=== PATIENT | male | born 1965 | race Caucasian/White ===

== ENCOUNTER 2017-06-04 09:23 | Inpatient (IN) | payer OTHER ==
[~2017-06-04] VITALS: Ht 185.4 cm; Wt 99.8 kg
[2017-06-04 10:04] LABS: BASOPHILS 0.1 % (0-2); EOSINOPHILS 0.3 % (0-7); HEMATOCRIT 42.2 % (42.0-54.0); HEMOGLOBIN 14.4 g/dL (13.5-17.5); IMMATURE GRANULOCYTES 0.2 % (0-5); LYMPHOCYTES 6.9 % (15-50); MCH 28.3 pg (26.0-34.0); MCHC 34.1 g/dL (31.0-37.0); MCV 83.1 fL (80.0-100.0); MEAN PLATELET VOLUME 11.8 fL (7.4-10.4); MONOCYTES 6.7 % (2-11); NEUTROPHILS 85.8 % (40-80); PLATELET COUNT 137 10x3/uL (130-400); RBC 5.08 10x6/uL (4.20-6.10); RDW 14.1 % (11.5-14.5); WBC 17.7 10x3/uL (4.8-10.8)
[2017-06-04 10:13] LABS: APPEARANCE CLEAR (CLEAR); BACTERIA MODERATE /hpf (NONE SEEN); BILIRUBIN NEGATIVE (NEGATIVE); COLOR DK YELLOW (YELLOW); EPITHELIAL CELLS OCC /hpf (0-5); GLUCOSE NEGATIVE (NEGATIVE); HYALINE CAST RARE /lpf (NONE SEEN); KETONE NEGATIVE (NEGATIVE); MUCUS <1+ /lpf (NONE SEEN); NITRITE NEGATIVE (NEGATIVE); PROTEIN 2+ mg/dL (NEGATIVE); RED CELLS - URINE 0-5 /hpf (0-5); UROBILINOGEN NORMAL (NORMAL); WHITE CELLS - URINE OCC /hpf (0-5)
[2017-06-04 10:15] LABS: ALBUMIN 3.9 g/dL (3.4-5.0); ANION GAP 10.5 mmol/L (8-16); BILIRUBIN - TOTAL 1.84 mg/dL (0.2-1.3); CALCIUM 9.5 mg/dL (8.5-10.1); CARBON DIOXIDE 32.3 mmol/L (21.0-32.0); CREATININE - SERUM 1.4 mg/dL (0.6-1.3); POTASSIUM - SERUM 3.8 mmol/L (3.5-5.1); PROTEIN - SERUM 8.5 g/dL (6.4-8.2)
[2017-06-04 10:37] LABS: AMYLASE - SERUM 55 U/L (25-115); LIPASE 348 U/L (73-393)
--- NOTE | 2017-06-04 14:37 | NUR ---
REC'D REPORT FROM KATELYN BATES IN THE ER. AWAITING PATIENT TO ARRIVE ON THE FLOOR.
[2017-06-04] MEDS ORDERED: PROTONIX40 MG PO (14:49)
[2017-06-04] MEDS ORDERED: LISINOPRIL5 MG PO (14:50)
[2017-06-04] MEDS ORDERED: PRAVACHOL40 MG PO (14:50)
[2017-06-04] MEDS ORDERED: CYCLOBENZAPRINE10 MG PO (14:51)
[2017-06-04] MEDS ORDERED: PHENERGAN25 M1 PO (14:51)
[2017-06-04] MEDS ORDERED: BENTYL 20 MG TA20 MG PO (14:52)
[2017-06-04 15:40] VITALS: BP 131/88; BMI 29.0
--- NOTE | 2017-06-04 17:01 | NUR ---
REC'D VIA WHEELCHAIR. IV TO THE RIGHT AC. ALERT AND ORIENTED X4. DENINED PAIN AT THIS TIME. NO DISTRESS NOTED. IS AT BESIDE. INSTRUCTED TO CALL IF NEEDED ANYTHING, VERBALIZED UNDERSTANDING. BED LOW, LOCKED, CALL LIGHT IN REACH.
--- NOTE | 2017-06-04 19:25 | NUR ---
RECIEVED SHIFT REPORT. PT IS LYING IN BED. ALERT AND ORIENTED AND ABLE TO VERBALIZE NEEDS. IV IS PATENT AND FLUIDS ARE RUNNING PER ORDER. PT IS AMBULATORY BUT WAS INSTRUCTED TO CALL FOR ANY ASSISTANCE NEEDED. PT STATES PAIN IS 2/10 WITH CAPTAIN AIRLINE PILOT PUMP. PT REQUESTING A FAN. NO FURTHER NEEDS ARE VERBALIZED AT THIS TIME. WILL CONTINUE TO MONITOR. SIDE RAILS ARE UP X 2. BED IS IN LOWEST POSITION. CALL LIGHT IS WITHIN REACH.
--- NOTE | 2017-06-04 21:28 | NUR ---
SHIFT ASSESSMENT COMPLETED. FLUIDS HUNG PER ORDER. NO NEEDS ARE VOICED. WILL MONITOR. SIDE RAILS X 2. BED LOW. CALL LIGHT IN REACH.
[2017-06-05] VITALS: BP 135/92
[2017-06-05 04:00] VITALS: BP 137/95
[2017-06-05 06:47] LABS: BASOPHILS 0.1 % (0-2); EOSINOPHILS 1.1 % (0-7); HEMATOCRIT 36.5 % (42.0-54.0); HEMOGLOBIN 11.9 g/dL (13.5-17.5); IMMATURE GRANULOCYTES 0.2 % (0-5); LYMPHOCYTES 7.5 % (15-50); MCH 27.7 pg (26.0-34.0); MCHC 32.6 g/dL (31.0-37.0); MCV 84.9 fL (80.0-100.0); MEAN PLATELET VOLUME 12.1 fL (7.4-10.4); MONOCYTES 7.8 % (2-11); NEUTROPHILS 83.3 % (40-80); PLATELET COUNT 125 10x3/uL (130-400); RDW 14.6 % (11.5-14.5)
[2017-06-05 06:53] LABS: WBC 9.3 10x3/uL (4.8-10.8)
[2017-06-05 07:15] LABS: ALKALINE PHOSPHATASE 132 U/L (46-116); AMYLASE - SERUM 28 U/L (25-115); BILIRUBIN - DIRECT 0.31 mg/dL (0.00-0.30); BILIRUBIN - INDIRECT 0.99 mg/dL (0.00-1.00); CALC OSMOLALITY 266 mosm/kg (275-300); CALCIUM 8.2 mg/dL (8.5-10.1); CARBON DIOXIDE 27.6 mmol/L (21.0-32.0); CHLORIDE - SERUM 99 mmol/L (98-107); GLUCOSE 107 mg/dL (74-106); LIPASE 178 U/L (73-393); MAGNESIUM - SERUM 2.2 mg/dL (1.8-2.4); PHOSPHOROUS 2.3 mg/dL (2.5-4.9); SODIUM 133 mmol/L (136-145); TRIGLYCERIDE 381 mg/dL (30-200); UREA NITROGEN 15 mg/dL (7-18)
[2017-06-05 07:16] LABS: ALT (SGPT) 106 U/L (10-68); POTASSIUM - SERUM 4.4 mmol/L (3.5-5.1); eGFR NON AFRICAN AMERICAN 83 mL/min (90-120)
--- NOTE | 2017-06-05 07:40 | NUR ---
ASSESSMENT PER FLOW SHEET.PT WITHOUT DISTRESS AT PRESENT.PT COMPLAINS OF PAIN 3/10 SCALE TO BACK AND STATES THAT THE PAIN IS CHRONIC.CALL LIGHT IN REACH
[2017-06-05 07:56] VITALS: BP 132/72
--- NOTE | 2017-06-05 09:43 | NUR ---
PT REFUSES SCD'S
--- NOTE | 2017-06-05 09:45 | NUR ---
MEDS ORDERED FOR NAUSEA.
[2017-06-05 12:42] VITALS: Ht 185.4 cm; Wt 99.8 kg
[2017-06-05 16:00] VITALS: BP 148/92
--- NOTE | 2017-06-05 19:20 | NUR ---
NOTIFIED BY LYNDA RUIZ THAT THE PATIENT REQUESTED TO SPEAK WITH AN RN. UPON ENTERING THE PATIENT'S ROOM THE PATIENT WAS UPSET BECAUSE HIS X RAY SERVICE TECHNICIAN PUMP WAS LOCKING HIM OUT. HE STATED THAT IF HE WAS ACTUALLY GETTING THE MEDICATION "I WOULD BE SLEEPING." I EXPLAINED TO THE PATIENT HOW THE X RAY SERVICE TECHNICIAN PUMP WORKS AND SHOWED HIM ON THE PUMP HOW MUCH MEDICATION HE HAD USED. I EXPLAINED TO THE PATIENT, LYNDA DE JESUS AND LYNDA RUIZ HAD PREVIOUSLY EXPLAINED TO HIM, WE CANNOT "UNLOCK THE MACHINE" AND HE WOULD NEED TO WAIT FOR HIS LIGHT TO TURN GREEN AGAIN. I ASKED THE PATIENT IF HE NEEDS ANYTHING ELSE AT THIS TIME. THE PATIENT RESPONDED "YES, YOU CAN GET THE HELL OUT OF MY ROOM."
--- NOTE | 2017-06-05 20:05 | NUR ---
REST IN BED AND WATCH TV.
--- NOTE | 2017-06-05 21:10 | NUR ---
PT STATE,THE SHAG TRUCK DRIVER MACHINE DOESN'T WORK, AND IT BEEBING. HE STILL FEEL THE PAIN. CHECK THE SHAG TRUCK DRIVER, AND IT IS RUNING AND IS WORKING GOOD. RICHARDSON ZEPEDA COME TO CHECKED, AND EXPLAINED IT TO PT.
--- NOTE | 2017-06-05 22:05 | NUR ---
THE PATIENT REQUESTED THAT HIS DOCTOR BE NOTIFIED THAT HE WANTS TO GO HOME IN THE MORNING
[2017-06-06] VITALS: BP 143/87
--- NOTE | 2017-06-06 00:06 | NUR ---
REST IN BED, CALL LIGHT IN REACH.
--- NOTE | 2017-06-06 03:44 | NUR ---
REST QUIETLY IN BED, CALL LIGHT IN REACH.
[2017-06-06 04:00] VITALS: BP 155/105
--- NOTE | 2017-06-06 05:15 | NUR ---
PT SIGNED LEAVING AGAINST MEDICAL ADVICE RELEASE FORM. STATES:" CAR FRAMER IS NOT WORKING ALL NIGHT, AND NON OF THE NURSE CAN FIX THE CAR FRAMER. CHARGE NURSE TALKS TO PT, AND PT DECIDED STAYED UNTIL DR. LORENZO.
--- NOTE | 2017-06-06 08:13 | NUR ---
DECLINES ASSESSMENT THIS AM. PT VERY ANXIOUS AND WANTS TO DC HOME.DISCHARGE INSTRUCTIONS,STATES UNDERSTANDING.IV DCD WITH CATH TIP INTACT.
--- NOTE | 2017-06-06 08:17 | NUR ---
LEFT UNIT VIA WHEELCHAIR FOR TRANSPORT HOME
--- NOTE | 2017-06-06 13:27 | HP ---
PATIENT: JENISE BANERJEE MEDICAL RECORD: [id number] ACCOUNT: [id number] LOCATION:[id number] : 61 ADMISSION DATE: 06/04/17 HISTORY AND PHYSICAL EXAMINATION This is a history and physical addendum. CHIEF COMPLAINT: Pain. HISTORY OF PRESENT ILLNESS: The patient was complaining of back pain. He has not felt well since Saturday. Today is Saturday. I personally reviewed his CT images. I have personally reviewed his CT report. The patient used to be a heavy drinker, but not in the last 20 years. Reportedly, he has high triglycerides. Either one of these could be an etiology for his pancreatitis. He appears to have had bouts of pancreatitis in the past. Currently, he is mainly complaining of back pain. Palpation aggravates. Nothing alleviates. Symptoms are moderate to severe in intensity. He has not had a bowel movement in several days. This is a history and physical addendum. For the typed portion of the history and physical, please see the chart. This would include the past medical and surgical history, current medications, allergies, social history, as well as family history. REVIEW OF SYSTEMS: Positive for abdominal pain. Positive for back pain, no fever, no chills. Review of systems is negative other than as is described above. PHYSICAL EXAMINATION: GENERAL: He does appear acutely ill. He does not appear chronically ill. VITAL SIGNS: Reviewed. EARS: External ears appear normal. EYES: Extraocular movements are intact. NECK: Trachea is midline. CHEST: No intercostal retractions. PULMONARY: Nonlabored, no stridor. ABDOMEN: Tenderness in the upper abdomen. BACK: No thoracic kyphosis. LYMPHATICS: No lymphangitic streaking of the exposed extremities. PSYCHIATRIC: Anxious affect. NEUROLOGIC: Nonfocal, no lethargy. IMPRESSION: Acute pancreatitis, likely resolving. PLAN: He is on clear liquid diet. I will keep him on a clear liquid diet for now. IV narcotic analgesia. IV fluids. Serial abdominal examinations. Serial lab draws. TRANSINT:[id number] Voice Confirmation ID: [id number] DOCUMENT ID: [id number] HISTORY AND PHYSICAL [id number] JENISE BANERJEE HAILEE BYRD, FILIPPO DYER at 7490 CC: [id number] DICTATION DATE: 06/04/171940 ADULT PSYCHIATRIST: 06/04/172309 DIS IN 06/06/17 [facility] [address] [place] [address]
--- NOTE | 2017-07-03 11:31 | DS ---
PATIENT:JENISE BANERJEE :61 MEDICAL RECORD: [id number] DISCHARGE SUMMARY ADMISSION DATE: 06/04/17 DISCHARGE DATE: 06/06/17 PRINCIPAL DIAGNOSES: 1. Acute pancreatitis. 2. Anemia, not due to blood loss. 3. Hypophosphatemia. 4. Two cm pancreatic pseudocyst. 5. Hepatic steatosis. 6. Diverticulosis. OTHER DIAGNOSES: Include gastroesophageal reflux, hypertension, hyperlipidemia. 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 HOSPITAL COURSE: The patient was admitted through the Emergency Room. The patient had a resolution of his abdominal pain with bowel rest. He had nausea. His diet was advanced. He was dismissed home. The patient underwent a CT scan. It revealed findings consistent with acute pancreatitis. There was a probable pancreatic pseudocyst measuring 2 cm in the distal pancreatic body. I will see the patient on a p.r.n. basis. TRANSINT:[id number] Voice Confirmation ID: [id number] DOCUMENT ID: [id number] FILIPPO BYRD MD at 1131 CC: [id number] DICTATION DATE: 06/27/17 1445 AUTOMATED ACCESS SYSTEMS TECHNICIAN: 06/28/17 0955 DIS IN 06/06/17 [facility] [id number] [place] [address]
== END 2017-06-06 08:17 | disposition home or self-care (01) | DRG 440 ==
LOC: D.ER 09:23 → D.SDCHOLD 14:06 → D.MS 14:06
PROVIDERS: Emergency Medicine; Physician Assistant; ADMIT Surgery
DX: K85.90 Acute pancreatitis without necrosis or infection, unspecified (principal)

== ENCOUNTER 2017-11-23 15:04 | Emergency (ER) | payer OTHER ==
[~2017-11-23] VITALS: Ht 185.4 cm; Wt 106.8 kg
[~2017-11-23 15:04] MED LIST: BENTYL 20 MG TA20 MG PO; CYCLOBENZAPRINE10 MG PO; LISINOPRIL5 MG PO; PHENERGAN25 M1 PO; PRAVACHOL40 MG PO; PROTONIX40 MG PO
[2017-11-23 15:08] VITALS: Ht 185.4 cm; Wt 106.8 kg
[2017-11-23 15:30] LABS: APPEARANCE CLEAR (CLEAR); BASOPHILS 0.2 % (0-2); BILIRUBIN NEGATIVE (NEGATIVE); COLOR DK YELLOW (YELLOW); EOSINOPHILS 0.5 % (0-7); GLUCOSE NEGATIVE (NEGATIVE); HEMATOCRIT 41.8 % (42.0-54.0); HEMOGLOBIN 14.1 g/dL (13.5-17.5); IMMATURE GRANULOCYTES 0.2 % (0-5); KETONE NEGATIVE (NEGATIVE); LYMPHOCYTES 11.9 % (15-50); MCH 27.8 pg (26.0-34.0); MCHC 33.7 g/dL (31.0-37.0); MCV 82.4 fL (80.0-100.0); MEAN PLATELET VOLUME 11.7 fL (7.4-10.4); MONOCYTES 8.6 % (2-11); NEUTROPHILS 78.6 % (40-80); NITRITE NEGATIVE (NEGATIVE); PLATELET COUNT 128 10x3/uL (130-400); PROTEIN TRACE mg/dL (NEGATIVE); RBC 5.07 10x6/uL (4.20-6.10); RDW 13.5 % (11.5-14.5); SPECIFIC GRAVITY 1.015 (1.005-1.020); UROBILINOGEN NORMAL (NORMAL); WBC 9.3 10x3/uL (4.8-10.8)
[2017-11-23 15:45] LABS: ALBUMIN 4.2 g/dL (3.4-5.0); ANION GAP 13.7 mmol/L (8-16); BILIRUBIN - TOTAL 1.38 mg/dL (0.2-1.3); CALCIUM 9.6 mg/dL (8.5-10.1); CARBON DIOXIDE 28.3 mmol/L (21.0-32.0); CREATININE - SERUM 1.2 mg/dL (0.6-1.3); PROTEIN - SERUM 9.1 g/dL (6.4-8.2)
[2017-11-23] MEDS ORDERED: ULTRAM50 MG PO (17:45)
[2017-11-23] MEDS ORDERED: PHENERGAN25 M1 PO (17:45)
[2017-11-23 18:59] VITALS: BP 132/84
== END 2017-11-23 19:00 | disposition home or self-care (01) ==
LOC: D.ER 15:04
PROVIDERS: Emergency Medicine
DX: K85.90 Acute pancreatitis without necrosis or infection, unspecified (principal); M54.6 Pain in thoracic spine; M25.512 Pain in left shoulder; I10 Essential (primary) hypertension